=== PATIENT | female | born 1950 | race Hispanic/Latino ===

== ENCOUNTER 2021-06-17 19:58 | Emergency (ER) | payer MEDICARE ==
[~2021-06-17] VITALS: Ht 157.5 cm; Wt 54.4 kg
[2021-06-17 20:04] VITALS: BP 100/65
[2021-06-17] MEDS ORDERED: MORPHINE 4 MG SYG IVP ONE (20:30)
[2021-06-17] MEDS ORDERED: ONDANSETRON 4MG INJ IVP ONE (20:30)
[2021-06-17 22:11] VITALS: BP 131/59
[2021-06-17 23:41] VITALS: BP 119/86
[2021-06-17] MEDS ORDERED: ACET1TAB25 PO (23:57)
== END 2021-06-18 04:08 ==
LOC: EDH 19:58
DX: S30.1XXA Contusion of abdominal wall, initial encounter (principal); Z88.0 Allergy status to penicillin; Z88.6 Allergy status to analgesic agent; W06.XXXA Fall from bed, initial encounter; Y93.89 Activity, other specified; Y92.89 Other specified places as the place of occurrence of the external cause; Y99.8 Other external cause status
CPT/HCPCS: 74176; 96374; 96375; 99284; J2270; J2405